=== PATIENT | male | born 1955 | race Caucasian/White ===

== ENCOUNTER 2021-01-13 00:19 | Inpatient (IN) ==
[2021-01-13] MEDS ORDERED: Clindamycin 600 MG/50 ML 600 MG/50 ML IV.SOLN IVPB STA (01:03)
[2021-01-13] MEDS ORDERED: Isovue-370 500 ML BOTTLE IVP ONE ×2 (01:06→01:08)
[2021-01-13] MEDS ORDERED: 0.9 % Sodium Chloride 1,000 ML IVC ONE (01:08)
[2021-01-13 02:29] LABS: Bacteria,Urine Few per hpf (None-Few); Bilirubin,Urine Negative (Negative); Blood,Urine Moderate (Negative); Clarity,Urine Ex.Turbid (Clear); Color,Urine Yellow (Yellow); Glucose,Urine (UA) Normal (Normal); Hyaline Casts,Urine Few per lpf (None Seen); Ketones,Urine Negative (Negative); Leukocyte Esterase,Urine Large (Negative); Nitrite,Urine Negative (Negative); PH,Urine 6.5 pH Units (5.0-8.0); Protein,Urine 30 mg/dL (Neg-Trace); RBC,Urine TNTC per hpf (0-3); Specific Gravity,Urine 1.023 (1.010-1.025); Squamous Epithelial Cell,Urine Few per hpf (None-Few); Urobilinogen,Urine Normal (Normal); WBC,Urine TNTC per hpf (0-3)
[2021-01-13 02:40] LABS: Basophils % 0.2 %; Eosinophils # 0.1 K/mcL (0.0-0.6); Eosinophils % 0.4 %; Hematocrit 41.7 % (37.5-50.1); Hemoglobin 13.2 g/dL (12.9-16.9); Immature Granulocytes % 0.4 % (0-4); Lymphocytes # 1.4 K/mcL (0.6-4.6); Lymphocytes % 8.9 %; Mean Corpuscular HGB Conc 31.7 g/dL (31.6-35.5); Mean Corpuscular Hemoglobin 26.1 pg (28.0-33.3); Mean Corpuscular Volume 82.6 fL (83.0-100.0); Mean Platelet Volume 10.1 fL (9.4-12.4); Monocytes # 0.8 K/mcL (0.0-1.3); Monocytes % 5.1 %; Neutrophils # 13.3 K/mcL (1.6-8.9); Platelet Count 317 K/mcL (140-400); Red Blood Count 5.05 M/mcL (4.19-5.50); Red Cell Distribution Width 15.7 % (11.5-14.5); White Blood Count 15.7 K/mcL (4.3-11.1)
[2021-01-13] MEDS ORDERED: *HR* HYDROmorphone (PF) 1 MG/ML SYRINGE IVP ONE (02:48)
[2021-01-13] MEDS ORDERED: Ondansetron 4 MG/2 ML VIAL IVP ONE (02:49)
[2021-01-13 03:21] LABS: BUN/Creatinine Ratio 27 (6-26); Blood Urea Nitrogen 26 mg/dL (8-23); C-Reactive Protein 127 mg/L (Less than 10); Calcium 8.9 mg/dL (8.6-10.3); Carbon Dioxide 31 mEq/L (23-29); Chloride 98 mEq/L (98-107); Glucose 94 mg/dL (70-105); Osmolality,Calculated 289 (280-300); Potassium 3.4 mEq/L (3.5-5.1); Sodium 137 mEq/L (136-145); eGFR For African Americans > 60 (> 60); eGFR For Non-African Americans > 60 (> 60)
[2021-01-13] MEDS ORDERED: *HR* HYDROmorphone 2 MG/ML SYRINGE IVP ONE (05:47)
[2021-01-13] MEDS ORDERED: Naloxone 0.4 MG/ML INJ IVP PRN (06:01)
[2021-01-13] MEDS ORDERED: Ondansetron 4 MG/2 ML VIAL IVP PRN ×2 (06:01→16:49)
[2021-01-13] MEDS ORDERED: Potassium Chloride 40 MEQ, Lidocaine 1% 2 ML in 0.9 % Sodium Chloride 500 ML IVPB ONE (06:06)
[2021-01-13 07:29] LABS: INR 1.3
[2021-01-13 07:37] LABS: Albumin 3.1 g/dL (3.5-5.7); Bilirubin,Direct 0.1 mg/dL (0.0-0.2); Bilirubin,Indirect 0.4 mg/dL (0.0-1.0); Bilirubin,Total 0.5 mg/dL (0.3-1.0); Total Protein 6.1 g/dL (6.4-8.9)
[2021-01-13] MEDS ORDERED: Clindamycin 600 MG/50 ML 600 MG/50 ML IV.SOLN IVPB SCH (08:00)
[2021-01-13] MEDS ORDERED: *HR* FentaNYL (PF) 100 MCG/2 ML VIAL ONE ×3 (08:01→16:19)
[2021-01-13] MEDS ORDERED: *HR* Propofol 200 MG/20 ML VIAL IVP ONE (08:01)
[2021-01-13] MEDS ORDERED: Ondansetron 4 MG/2 ML VIAL ONE (08:01)
[2021-01-13] MEDS ORDERED: Lidocaine -MPF 2% 5 ML VIAL ONE ×2 (08:01→15:33)
[2021-01-13] MEDS ORDERED: *HR* Succinylcholine 200 MG/10 ML VIAL IVP ONE (08:01)
[2021-01-13] MEDS ORDERED: *HR* HYDROmorphone PF 0.5 MG/0.5 ML SYRINGE IVP PRN (08:52)
[2021-01-13] MEDS ORDERED: Ertapenem 1,000 MG in 0.9 % Sodium Chloride Mini Bag 100 ML IVPB SCH (09:00)
[2021-01-13] MEDS ORDERED: Morphine Sulfate/PF 5mg/10mL Vial ONE (09:21)
[2021-01-13] MEDS ORDERED: Morphine Sulfate 2 MG/ML SYRINGE IVP ONE (09:23)
[2021-01-13] MEDS ORDERED: Regadenoson 0.4 MG/5 ML SYRINGE IVP ONE (10:18)
[2021-01-13] MEDS: Cefepime HCl 2,000 MG in 0.9 % Sodium Chloride Mini Bag 100 ML IVPB SCH ×2 (14:17→19:02)
[2021-01-13] MEDS: 0.9 % Sodium Chloride 1,000 ML IVC SCH ×2 (14:35→20:34)
[2021-01-13] MEDS ORDERED: Potassium Effervescent 25 MEQ TABLET.EFF PO ONE (15:07)
[2021-01-13] MEDS ORDERED: *HR* Etomidate 40 MG/20 ML VIAL IVP ONE (15:31)
[2021-01-13] MEDS ORDERED: Heparin 1,000 UNITS/500 mL 500 ML ONE (15:32)
[2021-01-13] MEDS ORDERED: Nitroglycerin 0 MG/0 ML INFUS..BTL IVC ONE (15:37)
[2021-01-13] MEDS ORDERED: *HR* Norepinephrine 4 MG/4 ML VIAL IVC ONE (15:37)
[2021-01-13] MEDS ORDERED: Albumin Human 5% 0 GM/0 ML IV.SOLN ONE (15:37)
[2021-01-13] MEDS ORDERED: *HR* Vasopressin 20 UNIT/ML VIAL ONE (15:37)
[2021-01-13] MEDS ORDERED: EPHEDrine 50 MG/ML VIAL ONE (15:45)
[2021-01-13] MEDS ORDERED: *HR* Rocuronium Bromide 50 MG/5 ML VIAL ONE (15:51)
[2021-01-13] MEDS ORDERED: *HR* HYDROmorphone (PF) 1 MG/ML SYRINGE ONE (16:55)
[2021-01-13] MEDS ORDERED: *HR* Labetalol 20 MG/4 ML SYRINGE IVP ONE (16:59)
[2021-01-13] MEDS ORDERED: levoFLOXacin 500 MG/100 ML 500 MG/100 ML BAG IVPB SCH (17:00)
[2021-01-13] MEDS: *HR* HYDROmorphone PF 0.5 MG/0.5 ML SYRINGE IVP PRN ×2 (17:00→17:05)
[2021-01-13] MEDS: *HR* HYDROmorphone (PF) 1 MG/ML SYRINGE IVP PRN ×2 (18:21→22:33)
[2021-01-13] MEDS ORDERED: Vancomycin 1,250 MG/262.5 ML IV.SOLN IVPB SCH (19:00)
[2021-01-14 02:30] LABS: Basophils % 0.2 %; Eosinophils # 0.1 K/mcL (0.0-0.6); Eosinophils % 0.8 %; Hemoglobin 11.6 g/dL (12.9-16.9); Immature Granulocytes % 0.5 % (0-4); Lymphocytes # 1.6 K/mcL (0.6-4.6); Lymphocytes % 14.5 %; Mean Corpuscular HGB Conc 31.4 g/dL (31.6-35.5); Mean Corpuscular Hemoglobin 26.4 pg (28.0-33.3); Mean Corpuscular Volume 84.1 fL (83.0-100.0); Mean Platelet Volume 10.1 fL (9.4-12.4); Monocytes # 0.7 K/mcL (0.0-1.3); Monocytes % 6.7 %; Neutrophils # 8.3 K/mcL (1.6-8.9); Platelet Count 290 K/mcL (140-400); Red Cell Distribution Width 15.9 % (11.5-14.5); Segmented Neutrophils % 77.3 %; White Blood Count 10.8 K/mcL (4.3-11.1)
[2021-01-14] MEDS: *HR* HYDROmorphone (PF) 1 MG/ML SYRINGE IVP PRN ×2 (02:37→06:56)
[2021-01-14] MEDS: Piperacillin/Tazobactam 3.375 GM in 0.9 % Sodium Chloride Mini Bag 100 ML IVPB SCH ×3 (02:41→18:12)
[2021-01-14 02:52] LABS: BUN/Creatinine Ratio 17 (6-26); Blood Urea Nitrogen 15 mg/dL (8-23); C-Reactive Protein 67 mg/L (Less than 10); Calcium 8.2 mg/dL (8.6-10.3); Carbon Dioxide 31 mEq/L (23-29); Chloride 105 mEq/L (98-107); Glucose 117 mg/dL (70-105); Magnesium 1.6 mg/dL (1.6-2.6); Osmolality,Calculated 292 (280-300); Potassium 3.1 mEq/L (3.5-5.1); Sodium 140 mEq/L (136-145); eGFR For African Americans > 60 (> 60); eGFR For Non-African Americans > 60 (> 60)
[2021-01-14] MEDS ORDERED: Cefepime HCl 2,000 MG in 0.9 % Sodium Chloride Mini Bag 100 ML IVPB SCH (03:00)
[2021-01-14] MEDS ORDERED: Ondansetron 4 MG/2 ML VIAL IVP PRN (08:40)
[2021-01-14] MEDS ORDERED: Potassium Effervescent 25 MEQ TABLET.EFF PO ONE (08:40)
[2021-01-14] MEDS ORDERED: Naloxone 0.4 MG/ML INJ IVP PRN (08:40)
[2021-01-14] MEDS: Gabapentin 300 MG CAPSULE PO SCH ×3 (10:14→21:51)
[2021-01-14] MEDS: Ketorolac 30 MG/ML VIAL IVP SCH ×4 (10:14→23:08)
[2021-01-14] MEDS: *HR* OxyCODONE Immed Rel 5 MG TABLET PO PRN ×3 (12:57→21:51)
[2021-01-14] MEDS: Acetaminophen IV 1,000 MG/100 ML BAG IVPB SCH ×3 (12:58→23:13)
[2021-01-14] MEDS: Vancomycin 1,500 MG/265 ML IV.SOLN IVPB SCH (16:32)
[2021-01-14] MEDS ORDERED: Piperacillin/Tazobactam 3.375 GM VIAL ONE (18:06)
[2021-01-15] MEDS: Piperacillin/Tazobactam 3.375 GM in 0.9 % Sodium Chloride Mini Bag 100 ML IVPB SCH ×3 (00:52→16:51)
[2021-01-15] MEDS: *HR* OxyCODONE Immed Rel 5 MG TABLET PO PRN ×5 (02:02→20:23)
[2021-01-15] MEDS: Vancomycin 1,500 MG/265 ML IV.SOLN IVPB SCH ×2 (04:01→15:14)
[2021-01-15] MEDS: Acetaminophen IV 1,000 MG/100 ML BAG IVPB SCH ×2 (05:52→13:48)
[2021-01-15] MEDS: Ketorolac 30 MG/ML VIAL IVP SCH (06:06)
[2021-01-15 06:37] LABS: Hematocrit 38.9 % (37.5-50.1); Hemoglobin 12.1 g/dL (12.9-16.9); Mean Corpuscular HGB Conc 31.1 g/dL (31.6-35.5); Mean Corpuscular Hemoglobin 26.8 pg (28.0-33.3); Mean Corpuscular Volume 86.3 fL (83.0-100.0); Platelet Count 282 K/mcL (140-400); Red Blood Count 4.51 M/mcL (4.19-5.50); Red Cell Distribution Width 16.1 % (11.5-14.5); White Blood Count 9.6 K/mcL (4.3-11.1)
[2021-01-15] MEDS: Gabapentin 300 MG CAPSULE PO SCH ×3 (08:07→20:24)
[2021-01-15] MEDS ORDERED: 0.9 % Sodium Chloride 1,000 ML IVC SCH (09:45)
[2021-01-15] MEDS ORDERED: Perflutren Lipid Microsphere 1.3 ML in 0.9 % Sodium Chloride 8.7 ML IVP PRN (10:41)
[2021-01-15] MEDS: Isosorbide MONOnitrate (24 HR) 30 MG TAB.ER.24H PO SCH (12:04)
[2021-01-15] MEDS: Aspirin 81 MG TAB.CHEW PO SCH (12:04)
[2021-01-15] MEDS: *HR* LORazepam 0.5 MG TABLET PO PRN (17:29)
[2021-01-15] MEDS ORDERED: hydrOXYzine pamoate 25 MG CAPSULE PO ONE (20:58)
[2021-01-16] MEDS: *HR* OxyCODONE Immed Rel 5 MG TABLET PO PRN ×5 (00:18→17:00)
[2021-01-16] MEDS: Piperacillin/Tazobactam 3.375 GM in 0.9 % Sodium Chloride Mini Bag 100 ML IVPB SCH ×4 (00:19→23:43)
[2021-01-16 02:25] LABS: Hematocrit 38.4 % (37.5-50.1); Hemoglobin 11.9 g/dL (12.9-16.9); Mean Corpuscular Hemoglobin 26.6 pg (28.0-33.3); Mean Corpuscular Volume 85.9 fL (83.0-100.0); Mean Platelet Volume 10.1 fL (9.4-12.4); Platelet Count 291 K/mcL (140-400); Red Blood Count 4.47 M/mcL (4.19-5.50); Red Cell Distribution Width 16.2 % (11.5-14.5); White Blood Count 6.8 K/mcL (4.3-11.1)
[2021-01-16 02:42] LABS: BUN/Creatinine Ratio 19 (6-26); Blood Urea Nitrogen 14 mg/dL (8-23); Calcium 8.5 mg/dL (8.6-10.3); Carbon Dioxide 31 mEq/L (23-29); Chloride 103 mEq/L (98-107); Glucose 125 mg/dL (70-105); Osmolality,Calculated 288 (280-300); Potassium 3.9 mEq/L (3.5-5.1); Sodium 138 mEq/L (136-145); eGFR For African Americans > 60 (> 60); eGFR For Non-African Americans > 60 (> 60)
[2021-01-16] MEDS: Vancomycin 1,750 MG/517.5 ML IV.SOLN IVPB SCH ×2 (04:16→21:17)
[2021-01-16] MEDS: Vancomycin 1,500 MG/265 ML IV.SOLN IVPB SCH (04:51)
[2021-01-16] MEDS: *HR* LORazepam 0.5 MG TABLET PO PRN ×2 (06:51→21:24)
[2021-01-16] MEDS: Aspirin 81 MG TAB.CHEW PO SCH (08:19)
[2021-01-16] MEDS: Isosorbide MONOnitrate (24 HR) 30 MG TAB.ER.24H PO SCH (08:19)
[2021-01-16] MEDS: Gabapentin 300 MG CAPSULE PO SCH ×3 (08:20→21:19)
[2021-01-16] MEDS: methocarbamoL 750 MG TABLET PO PRN (17:44)
[2021-01-17] MEDS: *HR* OxyCODONE Immed Rel 5 MG TABLET PO PRN ×5 (01:39→21:31)
[2021-01-17 01:48] LABS: Hematocrit 37.8 % (37.5-50.1); Hemoglobin 11.4 g/dL (12.9-16.9); Mean Corpuscular HGB Conc 30.2 g/dL (31.6-35.5); Mean Corpuscular Hemoglobin 25.9 pg (28.0-33.3); Mean Corpuscular Volume 85.9 fL (83.0-100.0); Mean Platelet Volume 10.1 fL (9.4-12.4); Platelet Count 280 K/mcL (140-400); Red Cell Distribution Width 16.4 % (11.5-14.5); White Blood Count 8.4 K/mcL (4.3-11.1)
[2021-01-17 02:07] LABS: BUN/Creatinine Ratio 20 (6-26); Blood Urea Nitrogen 15 mg/dL (8-23); Calcium 8.3 mg/dL (8.6-10.3); Carbon Dioxide 30 mEq/L (23-29); Chloride 104 mEq/L (98-107); Glucose 151 mg/dL (70-105); Osmolality,Calculated 292 (280-300); Potassium 4.1 mEq/L (3.5-5.1); Sodium 139 mEq/L (136-145); eGFR For African Americans > 60 (> 60); eGFR For Non-African Americans > 60 (> 60)
[2021-01-17] MEDS: Vancomycin 1,750 MG/517.5 ML IV.SOLN IVPB SCH ×2 (04:42→15:45)
[2021-01-17] MEDS: methocarbamoL 750 MG TABLET PO PRN ×2 (04:43→12:25)
[2021-01-17] MEDS: Aspirin 81 MG TAB.CHEW PO SCH (08:00)
[2021-01-17] MEDS: Isosorbide MONOnitrate (24 HR) 30 MG TAB.ER.24H PO SCH (08:00)
[2021-01-17] MEDS: Gabapentin 300 MG CAPSULE PO SCH ×3 (08:00→21:32)
[2021-01-17] MEDS: Piperacillin/Tazobactam 3.375 GM in 0.9 % Sodium Chloride Mini Bag 100 ML IVPB SCH ×2 (08:02→15:45)
[2021-01-17] MEDS ORDERED: 0.9 % Sodium Chloride 1,000 ML ONE (08:03)
[2021-01-17] MEDS ORDERED: Piperacillin/Tazobactam 3.375 GM VIAL ONE (08:07)
[2021-01-17] MEDS: *HR* LORazepam 0.5 MG TABLET PO PRN (12:25)
[2021-01-17] MEDS: *HR* Heparin 5,000 UNIT/ML VIAL SQ SCH (17:01)
[2021-01-17] MEDS ORDERED: *HR* Heparin 5,000 UNIT/ML VIAL SQ SCH (18:00)
[2021-01-17] MEDS: Nicotine 14 MG PATCH.TD24 TD SCH (21:32)
[2021-01-18] MEDS: Piperacillin/Tazobactam 3.375 GM in 0.9 % Sodium Chloride Mini Bag 100 ML IVPB SCH ×3 (01:02→15:41)
[2021-01-18] MEDS: *HR* Heparin 5,000 UNIT/ML VIAL SQ SCH ×2 (05:03→15:41)
[2021-01-18] MEDS: *HR* LORazepam 0.5 MG TABLET PO PRN ×2 (05:04→20:25)
[2021-01-18 07:42] LABS: Hematocrit 37.2 % (37.5-50.1); Hemoglobin 11.6 g/dL (12.9-16.9); Mean Corpuscular HGB Conc 31.2 g/dL (31.6-35.5); Mean Corpuscular Volume 86.5 fL (83.0-100.0); Mean Platelet Volume 10.2 fL (9.4-12.4); Platelet Count 324 K/mcL (140-400); Red Cell Distribution Width 16.5 % (11.5-14.5); White Blood Count 11.9 K/mcL (4.3-11.1)
[2021-01-18 08:00] LABS: BUN/Creatinine Ratio 22 (6-26); Blood Urea Nitrogen 19 mg/dL (8-23); Calcium 8.4 mg/dL (8.6-10.3); Carbon Dioxide 28 mEq/L (23-29); Chloride 104 mEq/L (98-107); Glucose 96 mg/dL (70-105); Osmolality,Calculated 286 (280-300); Potassium 4.2 mEq/L (3.5-5.1); Sodium 137 mEq/L (136-145); eGFR For African Americans > 60 (> 60); eGFR For Non-African Americans > 60 (> 60)
[2021-01-18] MEDS: Gabapentin 300 MG CAPSULE PO SCH ×3 (09:34→20:25)
[2021-01-18] MEDS: Isosorbide MONOnitrate (24 HR) 30 MG TAB.ER.24H PO SCH (09:34)
[2021-01-18] MEDS: Aspirin 81 MG TAB.CHEW PO SCH (09:34)
[2021-01-18] MEDS ORDERED: Isovue-370 500 ML BOTTLE IVP ONE (11:16)
[2021-01-18] MEDS: *HR* OxyCODONE Immed Rel 5 MG TABLET PO PRN ×2 (18:24→22:32)
[2021-01-18] MEDS: Nicotine 14 MG PATCH.TD24 TD SCH (20:24)
[2021-01-18] MEDS: methocarbamoL 750 MG TABLET PO PRN (21:06)
[2021-01-19] MEDS: Piperacillin/Tazobactam 3.375 GM in 0.9 % Sodium Chloride Mini Bag 100 ML IVPB SCH ×3 (00:34→15:27)
[2021-01-19 02:46] LABS: Basophils % 0.4 %; Hemoglobin 11.2 g/dL (12.9-16.9)
[2021-01-19 02:47] LABS: Basophils # 0.1 K/mcL (0.0-0.2); Eosinophils # 0.4 K/mcL (0.0-0.6); Eosinophils % 3.2 %; Hematocrit 37.3 % (37.5-50.1); Immature Granulocytes % 0.6 % (0-4); Immature Platelets 6.6 % (1.1-6.1); Lymphocytes # 1.9 K/mcL (0.6-4.6); Lymphocytes % 15.6 %; Mean Corpuscular Hemoglobin 26.2 pg (28.0-33.3); Mean Corpuscular Volume 87.1 fL (83.0-100.0); Mean Platelet Volume 10.5 fL (9.4-12.4); Monocytes # 0.8 K/mcL (0.0-1.3); Monocytes % 6.4 %; Neutrophils # 9.1 K/mcL (1.6-8.9); Platelet Count 306 K/mcL (140-400); Red Blood Count 4.28 M/mcL (4.19-5.50); Red Cell Distribution Width 16.8 % (11.5-14.5); Segmented Neutrophils % 73.8 %; White Blood Count 12.3 K/mcL (4.3-11.1)
[2021-01-19] MEDS: *HR* OxyCODONE Immed Rel 5 MG TABLET PO PRN ×4 (02:51→20:11)
[2021-01-19 03:02] LABS: BUN/Creatinine Ratio 24 (6-26); Blood Urea Nitrogen 22 mg/dL (8-23); Calcium 8.4 mg/dL (8.6-10.3); Carbon Dioxide 27 mEq/L (23-29); Chloride 104 mEq/L (98-107); Glucose 110 mg/dL (70-105); Osmolality,Calculated 286 (280-300); Potassium 4.3 mEq/L (3.5-5.1); Sodium 136 mEq/L (136-145); eGFR For African Americans > 60 (> 60); eGFR For Non-African Americans > 60 (> 60)
[2021-01-19] MEDS: *HR* Heparin 5,000 UNIT/ML VIAL SQ SCH ×2 (07:26→16:46)
[2021-01-19] MEDS: Aspirin 81 MG TAB.CHEW PO SCH (09:25)
[2021-01-19] MEDS: Gabapentin 300 MG CAPSULE PO SCH ×3 (09:25→20:10)
[2021-01-19] MEDS: Isosorbide MONOnitrate (24 HR) 30 MG TAB.ER.24H PO SCH (09:25)
[2021-01-19] MEDS: *HR* LORazepam 0.5 MG TABLET PO PRN (13:27)
[2021-01-19] MEDS: methocarbamoL 750 MG TABLET PO PRN (15:28)
[2021-01-19] MEDS: Nicotine 14 MG PATCH.TD24 TD SCH (20:11)
[2021-01-19 21:37] VITALS: BP 129/75; PULSE 67; TEMP 97.9; O2SAT 96
[2021-01-20] MEDS: Piperacillin/Tazobactam 3.375 GM in 0.9 % Sodium Chloride Mini Bag 100 ML IVPB SCH (00:04)
[2021-01-20] MEDS: *HR* OxyCODONE Immed Rel 5 MG TABLET PO PRN (01:33)
[2021-01-20] MEDS: *HR* LORazepam 0.5 MG TABLET PO PRN (01:34)
== END 2021-01-20 04:09 | disposition home or self-care (01) | DRG 717 ==
LOC: 2NENU 00:19 → EMEROOARM 00:19 → SUATTDRO 06:01 → 2NENU 06:44
PROVIDERS: ADMIT Student in an Organized Health Care Education/Training Program; ATTEND Internal Medicine